=== PATIENT | male | born 1960 | race Hispanic/Latino ===

== ENCOUNTER → 2025-09-17 | Outpatient (CLI) | payer OTHER | END | disposition home or self-care (01) | LOC: LAB 11:28 | PROVIDERS: ATTEND Chiropractor | DX: E04.9 Nontoxic goiter, unspecified (principal) | CPT/HCPCS: 36415; 84481 ==

== ENCOUNTER → 2025-10-12 | Outpatient (CLI) | payer OTHER ==
--- NOTE | 2025-10-12 17:14 | HMCSR ---
APPROVED REPORT EXAM: Two-dimensional and M-mode echocardiogram with Doppler and color Doppler. INDICATION ICD: R00.1 Bradycardia 2D Dimensions RVDd 3.9 cm LVEF(%) 64.9 (>50%) LVED Vol(simp.) 108.0 mL IVSd 0.8 (0.7-1.1cm) FS(%) 36 % LVES Vol(simp.) 46.0 mL LVDd 5.1 (3.8-5.6cm) LA (2D) 4.1 (1.6-4.0cm) LVEF(%, simp.) 57 % PWd 1.0 (0.7-1.1cm) LVOT diam 2.6 (1.8-2.4cm) LA ESV INDEX (BP) 25.95 mL/m2 LVDs 3.3 (2.5-4.0cm) M-Mode Dimensions EPSS 0.4 cm LA (MM) 4.2 (1.6-4.0cm) Ao Root(MM) 3.3 (2.0-3.7cm) Aortic Valve AoV Vmax 1.3 m/s Ao Peak GR 7.1 mmHg LVOT Vmax 1.0 m/s AoV VTI 0.3 m Ao Mean GR 4.0 mmHg LVOT VTI 0.20 m PATRICIA (VMAX) 3.95 cm2 PATRICIA (VTI) 3.9 cm2 Mitral Valve MV E Vmax 73.5 cm/s DECEL Time 222 ms MV A Vmax 65.0 cm/s P 1/2 T 48 ms E/A ratio 1.1 MVA (PHT) 4.6 cm2 TDI E/E' Medial 11.9 E/E' Lateral 10.9 Medial E' Peak V 6.16 cm/s Lateral E' Peak V 6.77 cm/s Pulmonary Valve PV Vmax 1.0 m/s PV VTI 0.18 m PV Mean GR 2.3 mmHg PV Peak GR 3.7 mmHg PI End Judy. Conrado 79.7 cm/s Tricuspid Valve TR Vmax 1.2 m/s RAP (EST) 8 mmHg RVSP 13.8 mmHg TR Peak GR 5.8 mmHg Left Ventricle The left ventricle is normal size. There is normal LV segmental wall motion. There is normal left ventricular wall thickness. The LVEF is > 55%. The left ventricular diastolic function is normal. Right Ventricle The right ventricle is normal size. The right ventricular systolic function is normal. Atria The left atrium size is normal. The right atrium size is normal. Aortic Valve The aortic valve is trileaflet normal in structure. No aortic regurgitation is present. There is no aortic valvular stenosis. Mitral Valve The mitral valve is normal in structure. There is no mitral valve regurgitation noted. There is no mitral valve stenosis. Tricuspid Valve The tricuspid valve is normal in structure. There is trace of tricuspid valve regurgitation noted. Pulmonic Valve Pulmonic valve is not well visualized. There is no pulmonic valvular regurgitation. Great Vessels The aortic root is normal in size. IVC is not well visualized. Pericardium There is no pericardial effusion. Other Information Quality : Adequate Conclusion The left ventricle is normal size. The LVEF is > 55% with normal LV segmental wall motion. The left ventricular diastolic function is normal. The right ventricular systolic function is normal. Both atria are normal in size. No hemodynamically significant valvular abnormalities. There is no pericardial effusion.
--- NOTE | 2025-10-12 18:22 | EKG ---
[facility] Test Date: 2025-10-12 Test Time: 13:52:32 Pat Name: JOSIAH GACRIA Department: [facility] Patient ID: [facility] [place]-[id number] Room: Gender: M Games Manager: [id number] : 1960 Requested By: HARVEY VICTORIA Order Number: [id number] Reading MD: Dre Cadena Measurements Intervals [place] Rate: 53 P: 22 NC: 187 QRS: -26 QRSD: 103 T: -8 QT: 418 QTc: 393 Interpretive Statements Sinus rhythm Incomplete RBBB and LAFB No previous ECG available for comparison Electronically Signed On 10-13-2025 21:14:09 MACHINE WORKER by Dre Cadena Please click the below link to view image of tracing.
== END | disposition home or self-care (01) ==
LOC: RAH 13:02
PROVIDERS: ATTEND Chiropractor
DX: I45.10 Unspecified right bundle-branch block (principal); I44.4 Left anterior fascicular block; R00.1 Bradycardia, unspecified
CPT/HCPCS: 93005; 93306